=== PATIENT | female | born 1955 | race Two or more races ===

== ENCOUNTER 2022-12-13 09:30 | Inpatient (IN) | payer OTHER ==
[~2022-12-13] VITALS: Ht 157.5 cm; Wt 72.6 kg
[2022-12-16] MEDS ORDERED: LOSARTAN POTAS100 MG (13:45)
[2022-12-16] MEDS ORDERED: METOPROLOL SUCC25 MG (13:49)
[2022-12-16] MEDS ORDERED: GABAPENTIN300 M2 (13:49)
[2022-12-16] MEDS ORDERED: FAMOTIDINE20 MG (13:49)
[2022-12-16] MEDS ORDERED: FERROUS SULFAT325 M1 (13:49)
[2022-12-16] MEDS ORDERED: AMLODIPINE BESYL5 MG (13:50)
== END 2022-12-17 10:48 | disposition home or self-care (01) | DRG 741 ==
LOC: EDSTATUS 09:30 → ADM 09:30 → O/R 12-16 06:43 → OB/GYN 12-16 06:43
PROVIDERS: ADMIT Obstetrics & Gynecology Gynecologic Oncology; ATTEND Obstetrics & Gynecology Gynecologic Oncology
PROC: 0UT74ZZ Resection of Bilateral Fallopian Tubes, Percutaneous Endoscopic Approach (ICD-10-PCS; 2022-12-16)
PROC: 0UT24ZZ Resection of Bilateral Ovaries, Percutaneous Endoscopic Approach (ICD-10-PCS; 2022-12-16)
PROC: 07BC4ZZ Excision of Pelvis Lymphatic, Percutaneous Endoscopic Approach (ICD-10-PCS; 2022-12-16)
PROC: 0DBU4ZZ Excision of Omentum, Percutaneous Endoscopic Approach (ICD-10-PCS; 2022-12-16)
PROC: 0UT94ZZ Resection of Uterus, Percutaneous Endoscopic Approach (ICD-10-PCS; principal; 2022-12-16 11:45)
DX: C54.1 Malignant neoplasm of endometrium (principal); N83.292 Other ovarian cyst, left side; N83.291 Other ovarian cyst, right side; Z20.822 Contact with and (suspected) exposure to COVID-19